=== PATIENT | female | born 1990 | race Caucasian/White ===

== ENCOUNTER 2018-01-30 05:30 | Day surgery (SDC) | payer OTHER ==
[2018-01-28 15:49] VITALS: BMI 22.8
[2018-01-30 10:15] VITALS: BP 105/60; PULSE 100; TEMP 98
[2018-01-30] MEDS ORDERED: DEXAMETHASONE SOD PHOSPHATE 4 MG/1 ML VIAL ONE (10:53)
[2018-01-30] MEDS ORDERED: ROCURONIUM BROMIDE 50 MG/5 ML VIAL ONE (10:54)
[2018-01-30] MEDS ORDERED: MIDAZOLAM HCL 2 MG/2 ML SINGLE DOSE VIAL ONE (10:54)
[2018-01-30] MEDS ORDERED: PROPOFOL 20 ML ONE (10:54)
[2018-01-30] MEDS ORDERED: IBUPROFEN 800 MG/8 ML IJ IVPB PRN (11:19)
[2018-01-30] MEDS ORDERED: ACETAMINOPHEN 325 MG TABLET (FP) PO PRN (11:19)
--- NOTE | 2018-01-30 11:19 | HP ---
History & Physical Update - History History: No Change - Physical Physical: No Change - Assessment Assessment: No Change - Plan Plan: No Change (Agree with H&P from 01/28/18, for laparoscopic ovarian cystectomy - right side)
[2018-01-30] MEDS ORDERED: LACTATED RINGERS SOLUTION 1,000 ML IV SCH (11:30)
--- NOTE | 2018-01-30 12:14 | PN ---
Progress Note (short form) - Note Progress Note: After anesthesia evaluated patient the plan is to postpone surgery to to upper respiratory infection. Risk of precipitating a more serious infection or other upper respiratory events was discussed with pt by the anesthesiologist. Will plan to postpone surgery per anesthesia recommendations.
== END 2018-01-30 11:45 | disposition home or self-care (01) ==
LOC: JASUSAT 05:30
PROVIDERS: ATTEND Obstetrics & Gynecology
PROC: 3E013GC Introduction of Other Therapeutic Substance into Subcutaneous Tissue, Percutaneous Approach (ICD-10-PCS; principal; 2018-01-30)
DX: Z53.8 Procedure and treatment not carried out for other reasons (principal)
CPT/HCPCS: 86900